=== PATIENT | female | born 1935 | race Caucasian/White ===

== ENCOUNTER 2018-08-18 13:04 | Emergency (ER) | payer OTHER, MEDICARE ==
--- NOTE | 2018-08-18 13:27 | EDPHY ---
H & P Stated Complaint: fell onto [facility] knee Thursday , difficulty walking, arrived today from [place] Time Seen by Provider: 08/18/18 13:26 HPI/ROS: CHIEF COMPLAINT: Right knee injury HISTORY OF PRESENT ILLNESS: The patient presents to the ED with right knee pain. The patient fell and her knee on Thursday while visiting family in [place]. She was in a wheelchair for the past 2 days and has been unable to weightbear secondary to pain and swelling. The patient is anticoagulated with Eliquis. She is also on Plavix for recent stent. The patient denies any additional pain outside of her right knee. She denies any hip pain, back pain, foot pain or additional extremity complaints. The patient did not strike her head. She has no complaints of headache. She did sustain superficial abrasions to her bilateral knees. REVIEW OF SYSTEMS: Constitutional: normal mentation Eyes: No visual changes ENT: no oral trauma Respiratory: no rib pain, no difficulty breathing Cardiac: No chest pain Gastrointestinal: No nausea, no vomiting, no abdominal pain Genitourinary: No hematuria, no dysuria Musculoskeletal: As above Skin: As above Neurological: No headache, no numbness, no weakness Back: No midline pain Source: Patient Exam Limitations: No limitations - Personal History Current Tetanus Diphtheria and Acellular Pertussis (TDAP): Yes - Medical/Surgical History Hx Asthma: No Hx Chronic Respiratory Disease: No Hx Diabetes: No Hx Cardiac Disease: Yes Hx Renal Disease: No Hx Cirrhosis: No Hx Alcoholism: No Hx HIV/AIDS: No Hx Splenectomy or Spleen Trauma: No Other PMH: A fib, cardic stent, arthritis, 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 Skin: Superficial abrasions bilateral knees Back: No midline T/L/S pain Extremities: Right knee effusion, tenderness over the right patella Neurological: A&Ox3, normal motor function, normal sensory exam Constitutional: Initial Vital Signs Temperature (C) 36.4 C 08/18/18 13:06 Heart Rate 100 08/18/18 13:06 Respiratory Rate 16 08/18/18 13:06 Blood Pressure 117/84 H 08/18/18 13:06 O2 Sat (%) 95 08/18/18 13:06 O2 Delivery Mode Room Air Allergies/Adverse Reactions: codeine Allergy (Verified 08/18/18 13:14) Home Medications: Medication Instructions Recorded Eliquis 08/18/18 Lipitor 08/18/18 Plavix 08/18/18 Medical Decision Making - Diagnostics Imaging Results: Imaging Impressions Knee X-Ray 08/18/18 13:22 Impression: Suspect vertical nondisplaced fracture lateral facet of the patella. ED Course/Re-evaluation: Patient presents the ED for evaluation of a right knee injury. She is noted to have a vertical nondisplaced fracture involving the lateral aspect of the patella. The patient has been placed in a knee immobilizer. [place] plans to follow up with an orthopedic surgeon when she returns to the [facility] on Thursday. The patient has been advised to limit flexion. She has advised to ice and elevate. She denies additional acute complaints. Differential Diagnosis: Differential diagnosis considered includes fracture, sprain, dislocation Departure - Departure Disposition: Home, Routine, Self-Care Clinical Impression: Patella fracture Qualifiers: Encounter type: initial encounter Fracture type: closed Fracture morphology: transverse Fracture alignment: nondisplaced Laterality: right Qualified Code(s) : S82.034A - Nondisplaced transverse fracture of right patella, initial encounter for closed fracture Condition: Good Instructions: Patellar Fracture (ED) Additional Instructions: 1. Please follow-up with orthopedic surgeon within the next week. I know you are traveling back to the [facility] and can certainly follow up with the orthopedic surgeon when he returns home. You can also follow up with a local orthopedic orthopedic surgeon. Per your request you have been given the contact number of a surgeon at [facility] who would be happy to see you in follow-up. 2. Wear knee immobilizer for comfort. 3. Ice frequently 20-30 minutes at a time 4 to 5 times a day for the next several days. 4. Tylenol as needed for pain. Referrals: Sunil Dempsey MD [Medical Doctor] - As per Instructions
[2018-08-18 14:49] VITALS: BP 121/87
== END 2018-08-18 14:49 | disposition home or self-care (01) ==
DX: S82.034A Nondisplaced transverse fracture of right patella, initial encounter for closed fracture (principal); W19.XXXA Unspecified fall, initial encounter; Z95.5 Presence of coronary angioplasty implant and graft; Z79.01 Long term (current) use of anticoagulants
CPT/HCPCS: 73564; 99283; L1830